=== PATIENT | male | born 1990 | race Caucasian/White ===

== ENCOUNTER 2019-08-05 22:01 | Emergency (ER) | payer BC ==
--- NOTE | 2019-08-05 22:55 | EDM.PDOC ---
ED HPI GENERAL MEDICAL PROBLEM - General Chief Complaint: General Stated Complaint: Bleeding during Bowel movement Time Seen by Provider: 08/05/19 22:10 Source of Information: Reports: Patient History Limitations: Reports: No Limitations - History of Present Illness INITIAL COMMENTS - FREE TEXT/NARRATIVE: Pt with rectal bleeding for several months Had increased bleeding tonight No pain No palpable masses Onset: Gradual Duration: Week(s): Location: Reports: Other (Rectum) - Related Data Allergies Allergy/AdvReac Type Severity Reaction Status Date / Time No Known Allergies Allergy Verified 08/05/19 22:15 Home Meds: Home Meds . [No Known Home Meds] 08/05/19 [History] Past Medical History Cardiovascular History: Reports: Hypertension Social & Family History - Tobacco Use Smoking Status *Q: Light Tobacco Smoker Years of Tobacco use: 10 Packs/Tins Daily: 0.5 - Caffeine Use Caffeine Use: Reports: Tea - Recreational Drug Use Recreational Drug Use: No ED ROS GENERAL - Review of Systems Review Of Systems: See Below GI/Abdominal: Reports: Other (Rectal bleeding) ED EXAM, GENERAL - Physical Exam Exam: See Below GI/Abdominal: Other (No bleeding No exteranl hemorrhoids) Course - Vital Signs Last Recorded V/S: Last Vital Signs Temp 36.7 C 08/05/19 22:03 Pulse 73 08/05/19 22:03 Resp 14 08/05/19 22:03 BP 188/95 H 08/05/19 22:03 Pulse Ox 100 08/05/19 22:03 - Orders/Labs/Meds Labs: Laboratory Tests 08/05/19 Range/Units 22:37 WBC 7.2 (4.0-10.2) K/uL RBC 5.27 (4.33-5.41) M/uL Hgb 15.6 (13.1-16.8) g/dL Hct 46.6 (39.0-49.0) % MCV 88.4 (84.0-98.0) fL MCH 29.6 (28.2-33.3) pg MCHC 33.5 (31.7-36.0) g/dL RDW 13.6 (11.2-14.1) % Plt Count 290 (150-350) K/uL Neut % (Auto) 58.8 (45.0-80.0) % Lymph % (Auto) 27.7 (10.0-50.0) % [facility] % (Auto) 7.5 (2.0-14.0) % Eos % (Auto) 5.2 H (0.0-5.0) % Baso % (Auto) 0.8 (0.0-2.0) % Neut # (Auto) 4.22 (1.40-7.00) K/uL Lymph # (Auto) 1.99 (0.50-3.50) K/uL [facility] # (Auto) 0.54 (0.00-1.00) K/uL Eos # (Auto) 0.37 (0.00-0.50) K/uL Baso # (Auto) 0.06 (0.00-0.20) K/uL Departure - Departure Time of Disposition: 23:00 Disposition: Home, Self-Care 01 Clinical Impression: Rectal bleeding - Discharge Information *PRESCRIPTION DRUG MONITORING PROGRAM REVIEWED*: Not Applicable *COPY OF PRESCRIPTION DRUG MONITORING REPORT IN PATIENT JOSUE: Not Applicable Instructions: Rectal Bleeding Additional Instructions: Follow up in clinic Sepsis Event Note - Evaluation Sepsis Screening Result: No Definite Risk - Focused Exam Vital Signs: Vital Signs Temp Pulse Resp BP Pulse Ox 08/05/19 22:03 36.7 C 73 14 188/95 H 100 Date Exam was Performed: 08/05/19 Time Exam was Performed: 22:52
== END 2019-08-05 23:00 | disposition home or self-care (01) ==
LOC: LL.ED 22:01
DX: K62.5 Hemorrhage of anus and rectum (principal); I10 Essential (primary) hypertension; F17.210 Nicotine dependence, cigarettes, uncomplicated
CPT/HCPCS: 36415; 85025; 99283

== ENCOUNTER 2019-10-18 18:14 | Emergency (ER) | payer BC ==
[2019-10-18] MEDS ORDERED: Sulfamethoxazole/Trimethoprim 800-160 MG Tab PO ONE (18:59)
--- NOTE | 2019-10-18 18:59 | EDM.PDOC ---
ED HPI GENERAL MEDICAL PROBLEM - General Chief Complaint: Upper Extremity Injury/Pain Stated Complaint: left index finger pain/swelling Time Seen by Provider: 10/18/19 18:30 Source of Information: Reports: Patient History Limitations: Reports: No Limitations - History of Present Illness INITIAL COMMENTS - FREE TEXT/NARRATIVE: Left index finger with pain and swelling at base of nail Did have hangnail Had drainage yesterday None today Increased swelling today Onset: Gradual Duration: Day(s): Location: Reports: Upper Extremity, Left Quality: Reports: Throbbing Severity: Mild Left Finger-Index Pain Score (Numeric/FACES): 6 - Related Data Allergies Allergy/AdvReac Type Severity Reaction Status Date / Time No Known Allergies Allergy Verified 10/18/19 18:15 Home Meds: Home Meds . [No Known Home Meds] 08/05/19 [History] Past Medical History Cardiovascular History: Reports: Hypertension Social & Family History - Tobacco Use Smoking Status *Q: Never Smoker Second Hand Smoke Exposure: No - Caffeine Use Caffeine Use: Reports: Tea - Recreational Drug Use Recreational Drug Use: No Review of Systems - Review of Systems Review Of Systems: See Below Skin: Reports: Erythema, Change in Color, Change in Hair/Nails ED EXAM, GENERAL - Physical Exam Exam: See Below Skin Exam: Other (Left index finger with swelling and erythema at base of nail No drainage No fluctuance No induration Nail intact) Course - Vital Signs Last Recorded V/S: Last Vital Signs Temp 98.1 F 10/18/19 18:15 Pulse 67 10/18/19 18:15 Resp 16 10/18/19 18:15 BP 133/80 10/18/19 18:15 Pulse Ox 99 10/18/19 18:15 - Re-Assessments/Exams Free Text/Narrative Re-Assessment/Exam: 10/18/19 18:57 Pt given Bactrim DS in ER Departure - Departure Time of Disposition: 19:00 Disposition: Home, Self-Care 01 Clinical Impression: Cellulitis of finger of left hand - Discharge Information *PRESCRIPTION DRUG MONITORING PROGRAM REVIEWED*: Not Applicable *COPY OF PRESCRIPTION DRUG MONITORING REPORT IN PATIENT JOSUE: Not Applicable Referrals: PCP,None [Primary Care Provider] - Additional Instructions: Rx Bactrim DS 1 pill twice a day for 10 days Follow up in clinic Sepsis Event Note - Evaluation Sepsis Screening Result: No Definite Risk - Focused Exam Vital Signs: Vital Signs Temp Pulse Resp BP Pulse Ox 10/18/19 18:15 98.1 F 67 16 133/80 99 Date Exam was Performed: 10/18/19 Time Exam was Performed: 18:55
== END 2019-10-18 19:10 | disposition home or self-care (01) ==
LOC: LL.ED 18:14
DX: L03.012 Cellulitis of left finger (principal); I10 Essential (primary) hypertension
CPT/HCPCS: 99283; A9270-GY

== ENCOUNTER 2022-07-26 11:13 | Emergency (ER) | payer BC ==
[2022-07-26] MEDS ORDERED: Morphine 2 MG/ML SYRINGE IVPUSH ONE (11:15)
[2022-07-26] MEDS ORDERED: Ondansetron 4 MG/2 ML SDV ONE (11:16)
[2022-07-26] MEDS ORDERED: Sodium Chloride 0.9% 10 ML Syringe FLUSH PRN (11:17)
[2022-07-26] MEDS ORDERED: Morphine 2 MG/ML SYRINGE ONE (11:17)
[2022-07-26] MEDS ORDERED: Ondansetron 4 MG/2 ML SDV IVPUSH PRN (11:18)
[2022-07-26] MEDS ORDERED: Sodium Chloride 0.9% 1,000 ML IV SCH (11:30)
[2022-07-26 11:50] LABS: ANION GAP 21.4 meq/L (7-15); CHLORIDE,CL 97 mmol/L (98-107); ESTIMATED GFR 122 mL/min (>=60); SODIUM,NA 136 mmol/L (136-145)
[2022-07-26 12:19] LABS: BARBITURATE SCREEN,URINE NEGATIVE (NEGATIVE); BENZODIAZEPINES SCREEN,URINE NEGATIVE (NEGATIVE); EDDP,URINE SCREEN NEGATIVE (NEGATIVE); TCA SCREEN,URINE NEGATIVE (NEGATIVE); THC SCREEN,URINE 50 NG/ML POSITIVE (NEGATIVE)
[2022-07-26 12:20] LABS: BUPRENORPHINE SCREEN,URINE NEGATIVE (NEGATIVE)
[2022-07-26] MEDS ORDERED: Hydrochlorothiazide 25 MG Tab PO ONE (13:39)
[2022-07-26] MEDS ORDERED: Lisinopril 20 MG Tab PO ONE (13:45)
== END 2022-07-26 13:50 | disposition home or self-care (01) ==
LOC: LL.ED 11:13
DX: R07.89 Other chest pain (principal); I10 Essential (primary) hypertension; Z79.899 Other long term (current) drug therapy
CPT/HCPCS: 36415; 71045; 80053; 80305; 81003; 82550; 83880; 84484; 85025; 93005; 96361; 96374; 96375; 99285; A9270; J2270; J2405; J7030; 93010; 99284

== ENCOUNTER 2022-12-07 21:11 | Emergency (ER) | payer BC ==
[2022-12-07] MEDS: Acetaminophen 500 MG Tab PO ONE (21:46)
== END 2022-12-07 21:55 | disposition home or self-care (01) ==
LOC: LL.ED 21:11
DX: S50.11XA Contusion of right forearm, initial encounter (principal); F17.210 Nicotine dependence, cigarettes, uncomplicated; I10 Essential (primary) hypertension; W21.07XA Struck by softball, initial encounter; Y93.64 Activity, baseball
CPT/HCPCS: 73090; 99283; A9270

== ENCOUNTER 2022-12-12 10:40 | Emergency (ER) | payer BC | END 2022-12-12 12:35 | disposition home or self-care (01) | LOC: LL.ED 10:40 | DX: S46.811A Strain of other muscles, fascia and tendons at shoulder and upper arm level, right arm, initial encounter (principal); F17.210 Nicotine dependence, cigarettes, uncomplicated | CPT/HCPCS: 73030-RT; 99283 ==

== ENCOUNTER 2023-02-04 09:44 | Emergency (ER) | payer BC | END 2023-02-04 10:50 | disposition home or self-care (01) | LOC: LL.ED 09:44 | DX: S53.401A Unspecified sprain of right elbow, initial encounter (principal); I10 Essential (primary) hypertension; Z79.899 Other long term (current) drug therapy; V29.99XA Rider (driver) (passenger) of other motorcycle injured in unspecified traffic accident, initial encounter; Y92.410 Unspecified street and highway as the place of occurrence of the external cause | CPT/HCPCS: 73070-RT; 99282; 99283 ==

== ENCOUNTER 2023-02-07 13:48 | Emergency (ER) | payer BC ==
[2023-02-07 14:55] LABS: BASOPHILS ABSOLUTE AUTO 0.07 K/uL (0.00-0.20); BASOPHILS PERCENT AUTO 1.4 % (0.0-2.0); HEMATOCRIT 47.3 % (39.0-49.0); HEMOGLOBIN 16.3 g/dL (13.1-16.8); LYMPHOCYTES ABSOLUTE AUTO 1.92 K/uL (0.50-3.50); LYMPHOCYTES PERCENT AUTO 37.7 % (10.0-50.0); MEAN CORPUSCULAR HEMOGLOBIN 31.7 pg (28.2-33.3); MEAN CORPUSCULAR HGB CONC 34.5 g/dL (31.7-36.0); MONOCYTES PERCENT AUTO 5.9 % (2.0-14.0); PLATELET COUNT,PLT 275 K/uL (150-350); RED BLOOD CELL COUNT 5.14 M/uL (4.33-5.41); RED CELL DISTRIBUTION WIDTH 13.4 % (11.2-14.1); WHITE BLOOD CELL COUNT,WBC 5.1 K/uL (4.0-10.2)
[2023-02-07 15:24] LABS: ALANINE AMINOTRANSFERASE,ALT 167 U/L (12-78); ALBUMIN 4.7 g/dL (3.4-5.0); ALKALINE PHOSPHATASE 82 IU/L (46-116); ASPARTATE AMNIOTRANSFERASE,AST 142 U/L (15-37); BILIRUBIN TOTAL 1.2 mg/dL (0.2-1.0); BLOOD UREA NITROGEN,BUN 8 mg/dL (7-18); CALCIUM 9.2 mg/dL (8.5-10.1); CHLORIDE,CL 101 mmol/L (98-107); CREATININE 0.72 mg/dL (0.51-1.17); ESTIMATED GFR 126 mL/min (>=60); ETHANOL BLOOD MEDICAL 0.351 g/dL (0.000-0.080); GLUCOSE RANDOM 86 mg/dL (70-99); MAGNESIUM 1.6 mg/dL (1.8-2.4); POTASSIUM,K 3.5 mmol/L (3.5-5.1); PROTEIN TOTAL,TP 9.3 g/dL (6.4-8.2); SODIUM,NA 141 mmol/L (136-145)
[2023-02-07] MEDS ORDERED: Sodium Chloride 0.9% 1,000 ML IV ONE (15:28)
== END 2023-02-07 15:40 | disposition left against medical advice (07) ==
LOC: LL.ED 13:48
DX: F10.29 Alcohol dependence with unspecified alcohol-induced disorder (principal); R74.01 Elevation of levels of liver transaminase levels; E83.42 Hypomagnesemia; I10 Essential (primary) hypertension; Y90.8 Blood alcohol level of 240 mg/100 ml or more
CPT/HCPCS: 36415; 71046; 80053; 80307; 83605; 83735; 84484; 85025; 93005; 99285